=== PATIENT | female | born 1960 | race African-American/Black ===

== ENCOUNTER 2023-12-22 09:33 | Inpatient (IN) | payer SELFPAY ==
[~2023-12-22] VITALS: Ht 154.9 cm; Wt 95.3 kg
[2023-12-22 09:37] VITALS: O2SAT 97
[2023-12-22] MEDS: EPINEPHRINE 1:1000 1 MG/ML AMP IM ONE (10:00)
[2023-12-22] MEDS: DEXAMETHASONE 4MG/ML 1ML VIAL IV ONE (10:00)
[2023-12-22] MEDS: FAMOTIDINE 20MG/2ML VIAL IV ONE (10:00)
[2023-12-22] MEDS: AMPICILLIN SOD/SULBACTAM NA 3 G in SODIUM CHLORIDE 0.9% 100 ML IV SCH (10:00)
[2023-12-22] MEDS: DIPHENHYDRAMINE 50MG/ML VIAL IV ONE (10:00)
[2023-12-22 11:17] LABS: BASOPHILS % 0.2 % (0.0-2.0); EOSINOPHILS % 0.2 % (0.0-5.0); HEMATOCRIT. 36.1 % (36.0-48.0); HEMOGLOBIN. 11.7 g/dL (12.0-16.0); LYMPHOCYTES % 11.3 % (20.0-50.0); MEAN CORPUSCULAR HEMOGLOBIN 28.7 pg (28.0-32.0); MEAN CORPUSCULAR HGB CONC 32.3 g/dL (31.0-37.0); MEAN CORPUSCULAR VOLUME 88.7 fL (81.0-99.0); MEAN PLATELET VOLUME 8.6 fl (7.4-10.4); MONOCYTES % 6.7 % (2.0-8.0); NEUTROPHILS % 81.6 % (40.0-76.0); PLATELET 322 x1000/uL (130-400); RED BLOOD CELL COUNT 4.07 mill/uL (4.2-5.4); RED CELL DISTRIBUTION WIDTH 14.4 % (11.6-14.6); WHITE BLOOD COUNT 17.2 x1000/uL (4.5-11.0)
[2023-12-22 11:21] LABS: CHLORIDE 97 mEq/L (98-107); POTASSIUM 3.1 mEq/L (3.5-5.1); SODIUM 137 mEq/L (136-145)
[2023-12-22 11:22] LABS: CARBON DIOXIDE 32 mEq/L (21-32)
[2023-12-22 11:23] LABS: CALCIUM 12.9 mg/dL (8.7-10.4)
[2023-12-22 11:27] LABS: CREATININE 0.6 mg/dL (0.6-1.0); GLUCOSE 115 mg/dL (70-105)
[2023-12-22 11:28] LABS: UREA NITROGEN BLOOD 17 mg/dL (9-23)
[2023-12-22 11:29] LABS: ALANINE AMINOTRANSFERASE 32 IU/L (10-49); ALBUMIN 4.2 g/dL (3.2-4.8); ASPARTATE AMINOTRANSFERASE 36 IU/L (<34)
[2023-12-22 11:30] LABS: BILIRUBIN DIRECT 0.3 mg/dL (<=3.0); BILIRUBIN TOTAL 0.7 mg/dL (0.1-1.0); PROTEIN TOTAL 7.9 g/dL (6.0-8.3)
[2023-12-22] MEDS: SODIUM CHLORIDE 0.9% 1000ML BAG (SEPSIS BOLUS) IV ONE (11:57)
[2023-12-22] MEDS: LACTATED RINGERS 1,000 ML IV SCH (12:06)
[2023-12-22 12:30] LABS: PROTHROMBIN TIME 11.2 sec (9.6-11.0)
[2023-12-22] MEDS ORDERED: IOHEXOL-300 100 ML BOTTLE ONE (12:47)
[2023-12-22] MEDS: KCL 20MEQ/100ML PREMIX 100 ML IV SCH (13:25)
[2023-12-22] MEDS: VANCOMYCIN 1.5GM/250ML IV NR (13:25)
[2023-12-22 14:10] VITALS: O2SAT 96
[2023-12-22 14:12] LABS: TRIGLYCERIDE 91 mg/dL (0-150); TROPONIN I HIGH SENSITIVITY 16 ng/L (3.0-34)
[2023-12-22 14:13] LABS: LDL CHOLESTEROL 36 mg/dL (5-100)
[2023-12-22 14:14] LABS: ALANINE AMINOTRANSFERASE 31 IU/L (10-49); ASPARTATE AMINOTRANSFERASE 39 IU/L (<34); BILIRUBIN TOTAL 0.7 mg/dL (0.1-1.0); CHOLESTEROL 133 mg/dL (<200); HDL CHOLESTEROL 60 mg/dL (>65); PHOSPHORUS 1.8 mg/dL (2.5-4.9)
[2023-12-22 14:16] LABS: THYROID STIMULATING HORMONE 2.49 uIU/mL (0.55-4.78)
[2023-12-22 14:45] VITALS: BP 155/89; PULSE 90; RESP 16; TEMP 37.252; TEMP 37.2520
[2023-12-22 15:35] LABS: CLARITY URINE TURBID (CLEAR); COLOR URINE YELLOW (YELLOW); GLUCOSE URINE NEGATIVE (NEGATIVE); KETONES URINE 3+ (NEGATIVE); LEUKOCYTE ESTERASE URINE 3+ (NEGATIVE); NITRITE URINE NEGATIVE (NEGATIVE); OCCULT BLOOD URINE 1+ (NEGATIVE); PH URINE 6.5 (4.5-8.0); PROTEIN URINE 1+ (NEGATIVE); SPECIFIC GRAVITY URINE 1.016 (1.005-1.030)
[2023-12-22] MEDS: DEXAMETHASONE 4MG/ML 1ML VIAL IV SCH (15:53)
[2023-12-22 16:01] LABS: WBC URINE 50-100 /hpf (0-2)
[2023-12-22 16:02] LABS: BACTERIA URINE 3+; SQUAMOUS EPITHELIAL CELL URINE 1+ /lpf (RARE/1+)
[2023-12-22 16:03] LABS: YEAST URINE NONE SEEN
[2023-12-22] MEDS ORDERED: DEXT 5%/0.45% NACL 1000ML 1,000 ML IV SCH (18:45)
[2023-12-22] MEDS ORDERED: ZOLPIDEM TARTRATE 5MG TABLET PO PRN (18:45)
[2023-12-22] MEDS ORDERED: PANTOPRAZOLE SODIUM 40 MG/VIAL IV SCH (18:45)
[2023-12-22] MEDS ORDERED: ENOXAPARIN 40MG/0.4ML SYR SUBCUT SCH (18:45)
[2023-12-22] MEDS ORDERED: ONDANSETRON HCL 4MG/2ML INJ IV PRN (18:45)
[2023-12-22] MEDS ORDERED: ACETAMINOPHEN 325MG TABLET PO PRN (18:45)
[2023-12-22] MEDS ORDERED: ENOXAPARIN 30MG/0.3ML SYR SUBCUT SCH (21:00)
[2023-12-23] MEDS ORDERED: VANCOMYCIN 1000MG/250ML IV SCH (13:00)
== END 2023-12-22 19:15 | disposition left against medical advice (07) | DRG 720 ==
LOC: ER 09:43 → CVICU 11:50 → EDBEDREQ 13:49 → EDBEDREQTM 13:49
PROVIDERS: ADMIT Internal Medicine; ATTEND Internal Medicine
DX: A41.9 Sepsis, unspecified organism (principal); D64.9 Anemia, unspecified; E87.6 Hypokalemia; E83.52 Hypercalcemia; Z53.29 Procedure and treatment not carried out because of patient's decision for other reasons; R59.0 Localized enlarged lymph nodes; J39.2 Other diseases of pharynx; T78.3XXA Angioneurotic edema, initial encounter; Y83.8 Other surgical procedures as the cause of abnormal reaction of the patient, or of later complication, without mention of misadventure at the time of the procedure; Y92.89 Other specified places as the place of occurrence of the external cause
CPT/HCPCS: 36415; 70491; 71045; 80048; 80061; 80076; 81003; 82247; 83036; 83605; 83735; 84100; 84145; 84443; 84450; 84460; 84484; 85025; 85651; 86160; 87077; 87186; 93005; 99291; J0295; J1100; J1200; J3370; J3480; J3490; J7030; J7050; Q9967

== ENCOUNTER 2023-12-22 19:53 | Emergency (ER) | payer SELFPAY ==
[~2023-12-22] VITALS: Ht 157.5 cm; Wt 109.0 kg
[2023-12-22 20:02] VITALS: O2SAT 97
[2023-12-22] MEDS: AMPICILLIN SOD/SULBACTAM NA 3 G in SODIUM CHLORIDE 0.9% 100 ML IV STA (21:05)
[2023-12-22] MEDS: KETOROLAC 30MG/ML VIAL IV ONE (22:16)
[2023-12-23] MEDS ORDERED: ONDANSETRON HCL 4MG/2ML INJ IV PRN (00:30)
[2023-12-23] MEDS: SODIUM CHLORIDE 0.9% 1,000 ML IV SCH (03:33)
[2023-12-23] MEDS: VANCOMYCIN 1.5GM/250ML IV NR (03:59)
[2023-12-23] MEDS: AMPICILLIN SOD/SULBACTAM NA 3 G in SODIUM CHLORIDE 0.9% 100 ML IV SCH (08:40)
[2023-12-23] MEDS: ENOXAPARIN 40MG/0.4ML SYR SUBCUT SCH (09:00)
[2023-12-23 12:00] VITALS: BP 145/90; PULSE 106; RESP 12; TEMP 36.72516; O2SAT 97
[2023-12-23 14:57] LABS: *AMPHETAMINES SCREEN URINE NEGATIVE (NEGATIVE); *BENZODIAZEPINES SCREEN URINE NEGATIVE (NEGATIVE)
[2023-12-23 14:58] LABS: *BARBITURATES SCREEN URINE NEGATIVE (NEGATIVE); *COCAINE SCREEN URINE NEGATIVE (NEGATIVE); CANNABINOID URINE SCREEN NEGATIVE (NEGATIVE); ECSTASY MDMA SCREEN URINE NEGATIVE (NEGATIVE); METHADONE URINE SCREEN NEGATIVE (NEGATIVE); OPIATES URINE SCREEN NEGATIVE (NEGATIVE); PHENCYCLIDINE URINE SCREEN NEGATIVE (NEGATIVE)
[2023-12-23] MEDS ORDERED: VANCOMYCIN 1GM PMX (XELLIA) 200 ML IV SCH (16:00)
[2023-12-24] MEDS ORDERED: VANCOMYCIN 1000MG/250ML IV SCH (06:00)
== END 2023-12-23 14:44 | disposition left against medical advice (07) ==
LOC: ER 19:53 → EDBEDREQ 22:01 → EDBEDREQTM 22:01 → ER 12-23 14:44 → CANBEDREQ 12-23 15:31
DX: K12.2 Cellulitis and abscess of mouth (principal)
CPT/HCPCS: 80305; 96365; 96366; 99285; J0295 ×2; J1885; J7050 ×2; Z7610 ×3; J3370

== ENCOUNTER 2023-12-23 19:22 | Emergency (ER) | payer SELFPAY ==
[~2023-12-23] VITALS: Ht 165.1 cm; Wt 81.0 kg
[2023-12-23 19:24] VITALS: O2SAT 99
[2023-12-23] MEDS: AMPICILLIN SOD/SULBACTAM NA 3 G in SODIUM CHLORIDE 0.9% 100 ML IV ONE (21:30)
[2023-12-23] MEDS ORDERED: VANCOMYCIN 1000MG/250ML 250 ML IV ONE (21:30)
[2023-12-23] MEDS ORDERED: DEXAMETHASONE 4MG/ML 1ML VIAL IV ONE (21:30)
[2023-12-23 23:13] VITALS: TEMP 36.66960
[2023-12-23] MEDS: VANCOMYCIN 1000MG/250ML 250 ML IV NR (23:21)
[2023-12-23] MEDS: DEXAMETHASONE 10 MG/ML VIAL IV NR (23:21)
[2023-12-24 03:00] VITALS: BP 157/78; PULSE 84; RESP 16; O2SAT 96
== END 2023-12-24 05:10 | disposition left against medical advice (07) ==
LOC: ER 19:22 → EDBEDREQ 21:42 → CANBEDREQ 12-24 05:09 → ER 12-24 05:10
DX: K12.2 Cellulitis and abscess of mouth (principal)
CPT/HCPCS: 99291; 96365; 96366; 96375; J1100; J3370; J0295; J7050